=== PATIENT | male | born 1955 | race Caucasian/White ===

== ENCOUNTER 2021-04-17 11:15 | Emergency (ER) | payer MEDICARE ==
[~2021-04-17] VITALS: Ht 172.7 cm; Wt 68.3 kg
[~2021-04-17 11:15] MED LIST: ACET-1600 PO; CHOL2000 PO; LUTE10TA2 PO
[2021-04-17 11:34] VITALS: BP 105/62
--- NOTE | 2021-04-17 11:54 | NUR ---
seamer panty hose: Pt ambulatory to room from lobby at this time.
[2021-04-17] MEDS ORDERED: LIDOCAINE-MPF 1%, 5ML ONE (12:18)
[2021-04-17] MEDS ORDERED: LIDOCAINE-MPF 1%, 5ML INFIL ONE (12:30)
== END 2021-04-17 13:20 | disposition home or self-care (01) ==
LOC: ED 13:10
DX: L02.511 Cutaneous abscess of right hand (principal)
CPT/HCPCS: 10060; 99283